=== PATIENT | female | born 1960 | race Caucasian/White ===

== ENCOUNTER 2016-08-04 15:47 | Emergency (ER) | payer SELFPAY ==
[~2016-08-04] VITALS: Ht 157.5 cm; Wt 85.0 kg
[2016-08-04 15:51] VITALS: BP 168/98; PULSE 122; RESP 20; TEMP 98.1; O2SAT 96
[2016-08-04] MEDS ORDERED: LISI2.5T3 PO (16:48)
[2016-08-04] MEDS ORDERED: SERT-132 PO (16:48)
[2016-08-04] MEDS ORDERED: TETANUS/DIPHTHERIA TOXOID ADULT 0.5 ML VIAL IM ONE (17:15)
[2016-08-04] MEDS ORDERED: LIDOCAINE HCL 2% 20 ML VIAL INFIL ONE (17:15)
[2016-08-04] MEDS ORDERED: BACT800T5 PO (18:14)
[2016-08-04] MEDS ORDERED: IBUP800T23 PO (18:14)
[2016-08-04] MEDS ORDERED: PERC5TAB12 PO (18:15)
--- NOTE | 2016-08-04 18:16 | PD ---
HPI Chief Complaint: Laceration/Skin Injury Time Seen by Provider: 16:50 Travel History International Travel<30 days: No Contact w/Intl Traveler<30days: No Traveled to known affect area: No History of Present Illness HPI She is a 56-year-old female who presents emergency for evaluation of a laceration to her left knee. Patient states she was walking and tripped. She denies any head injury or loss of consciousness. She denies any chest pain, dizziness or shortness of breath prior to the fall. Patient's last tetanus vaccine was within 5 years ago. Patient reports her pain as a 3 out of 10. She denies any other complaints at this time. [facility] Past Medical History Medical History: Denies Significant Hx Family History Family History: Negative Social History Alcohol Use: No Tobacco Use: No Substance Use: No Allergies-Medications (Allergen,Severity, Reaction): Coded Allergies: Penicillin (Verified Allergy, Unknown, 08/04/16) Reported Meds & Prescriptions Reported Meds & Active Scripts Active Percocet (Oxycodone-Acetaminophen) 5-325 mg Tab 1 Tab PO Q6H PRN Ibuprofen 800 Mg Tab 800 Mg PO Q8H PRN Bactrim DS (Sulfamethoxazole-Trimethoprim) 800-160 Mg Tab 1 Tab PO BID Reported Sertraline (Sertraline HCl) 50 Mg Tab 50 Mg PO DAILY Lisinopril 2.5 Mg Tab 2.5 Mg PO DAILY Review of Systems Except as stated in HPI: all other systems reviewed are Neg Musculoskeletal: Positive: Myalgias Skin: Positive Other (laceration to left knee) Physical Exam Narrative GENERAL: Well-nourished, well-developed patient. SKIN: Warm and dry. 3 cm laceration to the left knee just distal to the patella. HEAD: Normocephalic. EYES: No scleral icterus. No injection or drainage. NECK: Supple, trachea midline. No JVD or lymphadenopathy. CARDIOVASCULAR: Regular rate and rhythm without murmurs, gallops, or rubs. RESPIRATORY: Breath sounds equal bilaterally. No accessory muscle use. GASTROINTESTINAL: Abdomen soft, non-tender, nondistended. MUSCULOSKELETAL: No cyanosis, mild edema noted on the left knee just superior to the patella. Full range of motion, 5/5 muscle strength in bilateral lower extremities. No pain with range of motion of left knee. BACK: Nontender without obvious deformity. No CVA tenderness. Data Data Last Documented VS Vital Signs Date Time Temp Pulse Resp B/P Pulse Ox O2 Delivery O2 Flow Rate FiO2 08/04/16 15:51 98.1 122 20 168/98 96 Room Air Orders Tetanus/Diphtheria Tox Adult (Tetanus/Di (08/04/16 17:15) Lidocaine 2% Inj (Xylocaine 2% Inj) (08/04/16 17:15) MDM Medical Decision Making Medical Screen Exam Complete: Yes Emergency Medical Condition: Yes Interpretation(s) Vital Signs Date Time Temp Pulse Resp B/P Pulse Ox O2 Delivery O2 Flow Rate FiO2 08/04/16 15:51 98.1 122 20 168/98 96 Room Air Differential Diagnosis Abrasion versus laceration versus contusion versus fracture versus sprain versus strain versus other Narrative Course Patient is a 56-year-old female who presented to emergency room for evaluation of a laceration to her left knee that she sustained as a result of a mechanical fall prior to arrival. Patient has no neurological deficits. She's full range of motion in her left knee. She is neurovascularly intact. The base of wound is well visualized, wound was cleaned thoroughly, debris removed. Please see procedure report for laceration repair. Patient was placed on antibiotics prophylactically, her tetanus vaccine was updated today. She was advised that sutures will need to come out in 14 days, she was encouraged to return to emergency department to have this done or follow up with her primary doctor or at an urgent care center. Patient was educated on the signs and symptoms of infection. She verbalized understanding of instructions and need for prompt follow-up. Patient is stable for discharge. Patient place a knee immobilizer and given crutches. Diagnosis Primary Impression: Laceration of knee Qualified Code: S81.012A - Laceration of knee, left, initial encounter Additional Impressions: Contusion, knee Qualified Code: S80.02XA - Contusion of left knee, initial encounter Fall Qualified Code: W19.XXXA - Fall, initial encounter Referrals: Primary Care Physician Patient Instructions: Care For Your Stitches (ED), Contusion in Adults (ED), General Instructions, Laceration (ED), Stitches Removal (DC) Additional Instructions: Follow-up with your primary doctor Take medications as directed Alternate heat and ice to affected area, continue range of motion exercises, avoid bed rest Return to emergency department for any new or worsening symptoms Stitches will need to be removed in 10-14 days. Keep stitches clean and dry, apply nonocclusive dressing and antibiotic ointment. Med/Other Pt SpecificInfo: Prescription(s) given Scripts Oxycodone-Acetaminophen (Percocet)5-325 mg Tab1 Tab PO Q6H PRN (PAIN) #12 TAB Ref 0 Prov:Walker Campbell MD 08/04/16 Ibuprofen 800 Mg Cec062 Mg PO Q8H PRN (Pain/Inflammation) #60 TAB Ref 0 Prov:Yesica Waller 08/04/16 Sulfamethoxazole-Trimethoprim (Bactrim DS)800-160 Mg Tab1 Tab PO BID #14 TAB Ref 0 Prov:Yesica Waller 08/04/16 Disposition: 01 DISCHARGE HOME Condition: Stable Yesica Waller Aug 04, 2016 18:15
== END 2016-08-04 18:53 | disposition home or self-care (01) ==
LOC: NEPB 15:47
DX: S81.012A Laceration without foreign body, left knee, initial encounter (principal); S80.02XA Contusion of left knee, initial encounter; W01.10XA Fall on same level from slipping, tripping and stumbling with subsequent striking against unspecified object, initial encounter; Y93.01 Activity, walking, marching and hiking; Z23 Encounter for immunization
CPT/HCPCS: 90471; 90714; 99282; E0113

== ENCOUNTER 2016-08-18 09:58 | Emergency (ER) | payer SELFPAY ==
[~2016-08-18] VITALS: Ht 154.9 cm; Wt 84.0 kg
[~2016-08-18 09:58] MED LIST: BACT800T5 PO; IBUP800T23 PO; LISI2.5T3 PO; PERC5TAB12 PO; SERT-132 PO
[2016-08-18 10:00] VITALS: BP 157/95; PULSE 82; RESP 14; O2SAT 99
[2016-08-18 10:17] VITALS: TEMP 98
--- NOTE | 2016-08-18 10:24 | PD ---
HPI Chief Complaint: Wound/Suture/Staple Re-Check Time Seen by Provider: 10:19 Travel History International Travel<30 days: No Contact w/Intl Traveler<30days: No Traveled to known affect area: No History of Present Illness HPI 56-year-old female presents to the emergency department requesting suture removal to a laceration of her left knee. They have been intact for 2 weeks. Took oral antibiotics as prescribed and completed full course. She denies fever , chills, nausea, vomiting. Denies erythema, edema, purulent drainage from the site. Says when she does dressing changes there is minimal amount of blood that she sees coming from doing some of the sutures. She says she doesn't think the sutures are ready to come out, but was told to have them removed 2 weeks after the injury. Allergies to penicillin. Primary care provider is [facility]. No other modifying factors or associated signs and symptoms. History Past Medical Histgory Tetanus Vaccination: < 5 Years Social History Alcohol Use: No Tobacco Use: No Allergies-Medications (Allergen,Severity, Reaction): Coded Allergies: Penicillin (Verified Allergy, Unknown, 08/04/16) Reported Meds & Prescriptions Reported Meds & Active Scripts Active Ibuprofen 800 Mg Tab 800 Mg PO Q8H PRN Reported Sertraline (Sertraline HCl) 50 Mg Tab 50 Mg PO DAILY Lisinopril 2.5 Mg Tab 2.5 Mg PO DAILY Review of Systems Except as stated in HPI: all other systems reviewed are Neg Physical Exam Narrative GENERAL: Well-nourished, well-developed female patient, in no acute distress; afebrile SKIN: Warm and dry. Left knee with laceration that is well approximately with sutures intact; without erythema, edema, drainage. The laceration is still healing and the sutures are not ready to be removed. HEAD: Atraumatic. Normocephalic. EYES: Pupils equal and round. No scleral icterus. No injection or drainage. ENT: Mucosa pink and moist. Airway patent. NECK: Trachea midline. CARDIOVASCULAR: Regular rate. RESPIRATORY: No accessory muscle use. GASTROINTESTINAL: Rounded. MUSCULOSKELETAL: No obvious deformities. No clubbing. No cyanosis. No edema. NEUROLOGICAL: Awake and alert. Oriented 3. No obvious cranial nerve deficits. Motor grossly within normal limits. Normal speech. PSYCHIATRIC: Appropriate mood and affect; insight and judgment normal. Data Data Last Documented VS Vital Signs Date Time Temp Pulse Resp B/P Pulse Ox O2 Delivery O2 Flow Rate FiO2 08/18/16 10:17 98.0 08/18/16 10:00 82 14 157/95 99 Room Air [facility] Medical Screen Exam Complete: Yes Emergency Medical Condition: No Differential Diagnosis Medical clearance, wound recheck, suture removal Narrative Course 56-year-old female presents for suture removal to her left knee. The sutures been in place for 2 weeks. The wound is without signs of infection. The wound is well approximated and sutures are intact. I do not feel the stitches are ready to come out. Instructed the patient to keep the stitches in for another week to 2 weeks and follow-up with primary care return to the emergency department for reevaluation and suture removal. Patient is afebrile. She denies fever, chills, nausea, vomiting. Was given antibiotics for the laceration and completed them. Vital signs are stable and the patient is stable for outpatient follow-up and treatment. The patient has no urgent or emergent medical complaints. There is no emergent or urgent medical need at this time. I instructed the patient to follow up with their primary care provider. A medical screening exam was performed: At the time of evaluation the presenting medical condition was determined not to be of an emergent nature. The patient was given the option of receiving additional care, but declined. Patient was given options for additional community resources from which to obtain care. The Patient Has Been advised to seek medical attention for their presenting complaint. The patient has been advised to return to the ER at any time if an emergent condition develops. Primary Impression: Encounter for medical screening examination Condition: Stable Amina Chacon Aug 18, 2016 10:24
== END 2016-08-18 10:35 | disposition left against medical advice (07) ==
LOC: NEPB 09:58
DX: S81.012A Laceration without foreign body, left knee, initial encounter (principal); W01.10XA Fall on same level from slipping, tripping and stumbling with subsequent striking against unspecified object, initial encounter; Z48.02 Encounter for removal of sutures
CPT/HCPCS: 99281

== ENCOUNTER 2016-08-31 10:53 | Emergency (ER) | payer SELFPAY ==
[~2016-08-31] VITALS: Ht 157.5 cm; Wt 81.0 kg
[~2016-08-31 10:53] MED LIST changes: -BACT800T5 PO; -PERC5TAB12 PO
[2016-08-31 10:56] VITALS: BP 143/94; PULSE 78; RESP 16; TEMP 98.1; O2SAT 96
--- NOTE | 2016-08-31 11:36 | PD ---
HPI Chief Complaint: Wound/Suture/Staple Re-Check Time Seen by Provider: 11:31 Travel History International Travel<30 days: No Contact w/Intl Traveler<30days: No Traveled to known affect area: No History of Present Illness HPI Patient is a 56-year-old female presenting to the emergency department to have stitches removed from her knee. A 11/24. Patient presented on 08/18/16 and stitches did not appear to be ready to be removed. Patient has had no complaints, no redness, swelling, drainage from her wound. No complaints today. PFSH Past Medical History Anxiety: Yes Depression: Yes Hypertension: Yes Family History Family History: Negative Social History Alcohol Use: No Tobacco Use: No Substance Use: No Allergies-Medications (Allergen,Severity, Reaction): Coded Allergies: Penicillin (Verified Allergy, Unknown, 08/04/16) Reported Meds & Prescriptions Reported Meds & Active Scripts Active Ibuprofen 800 Mg Tab 800 Mg PO Q8H PRN Reported Sertraline (Sertraline HCl) 50 Mg Tab 50 Mg PO DAILY Lisinopril 2.5 Mg Tab 2.5 Mg PO DAILY Review of Systems Except as stated in HPI: all other systems reviewed are Neg Physical Exam Narrative GENERAL: Well-developed, well-nourished, alert female. Resting comfortably in no acute distress. SKIN: Warm and dry. Well approximated sutures noted to the left knee. No redness, swelling, drainage noted. HEAD: Normocephalic. EYES: No scleral icterus. No injection or drainage. NECK: Supple, trachea midline. No JVD or lymphadenopathy. CARDIOVASCULAR: Regular rate and rhythm without murmurs, gallops, or rubs. RESPIRATORY: Breath sounds equal bilaterally. No accessory muscle use. GASTROINTESTINAL: Abdomen soft, non-tender, nondistended. MUSCULOSKELETAL: No cyanosis, or edema. BACK: Nontender without obvious deformity. No CVA tenderness. Data Data Last Documented VS Vital Signs Date Time Temp Pulse Resp B/P Pulse Ox O2 Delivery O2 Flow Rate FiO2 08/31/16 10:56 98.1 78 16 143/94 96 [facility] Medical Decision Making Medical Screen Exam Complete: Yes Emergency Medical Condition: Yes Interpretation(s) Vital Signs Date Time Temp Pulse Resp B/P Pulse Ox O2 Delivery O2 Flow Rate FiO2 08/31/16 10:56 98.1 78 16 143/94 96 Differential Diagnosis Cellulitis versus abscess versus wound infection versus normal wound healing versus other Narrative Course Patient is a 56-year-old female presenting to the ER for evaluation and removal of stitches. The stitches are well approximated. Sutures removed without difficulty. Patient tolerated procedure well. Patient was encouraged to return to emergency department for any new or worsening symptoms, she was encouraged to wash the area with soap and water, apply sunscreen after scab falls off to prevent hyperpigmentation. She is encouraged to follow up with primary doctor. Patient is stable for discharge. Diagnosis Primary Impression: Encounter for removal of sutures Referrals: Primary Care Physician Patient Instructions: General Instructions Additional Instructions: Follow-up with her primary Wash area with soap and water After scab falls off apply sunscreen to area to prevent hyperpigmentation or scarring Return to emergency department for any new or worsening symptoms Med/Other Pt SpecificInfo: No Change to Meds Disposition: 01 DISCHARGE HOME Condition: Stable Yesica Waller Aug 31, 2016 11:36
== END 2016-08-31 12:02 | disposition home or self-care (01) ==
LOC: NEPB 10:53
DX: Z48.02 Encounter for removal of sutures (principal)
CPT/HCPCS: 99281